=== PATIENT | male | born 1930 | race Caucasian/White ===

== ENCOUNTER → 2017-04-05 | Outpatient (CLI) | payer MEDICARE, OTHER ==
[~2017-04-05] MED LIST: AMLO10TA4 PO; ASPI-496 PO; ATOR20TA PO; CALC-451 PO; CETI-158 PO; CHOL200074 PO; CLOP75TA52 PO; DICL100G19 TP; FERR325T18 PO; LATA2.5D2 EACHEYE; LEVO50TA PO; LEVO50TA5 PO; METO25TA91 PO; MULT-412 PO; OMEP20TA62 PO; SENN-25 PO; UBID300C PO; VALS1TAB15 PO; VALS1TAB30 PO
== END ==
LOC: CFH 11:49
PROVIDERS: ATTEND Physical Medicine & Rehabilitation
DX: M48.07 Spinal stenosis, lumbosacral region (principal); M47.896 Other spondylosis, lumbar region; M47.897 Other spondylosis, lumbosacral region; M47.816 Spondylosis without myelopathy or radiculopathy, lumbar region
CPT/HCPCS: 72110; 72148

== ENCOUNTER 2020-06-27 07:57 | Outpatient (CLI) | payer MEDICARE, OTHER ==
[~2020-06-27 07:57] MED LIST changes: +REGADENOSON 0.4 MG/5 ML SYRINGE ONE; +VALS1TAB PO; -VALS1TAB15 PO
== END 2020-06-27 23:59 | disposition home or self-care (01) ==
LOC: CFH 07:57
PROVIDERS: ATTEND Internal Medicine Cardiovascular Disease
DX: I10 Essential (primary) hypertension (principal); I25.10 Atherosclerotic heart disease of native coronary artery without angina pectoris
CPT/HCPCS: 78452; 93017; A9502; J2785